=== PATIENT | male | born 1995 | race Caucasian/White ===

== ENCOUNTER 2016-08-10 04:11 | Emergency (ER) | payer BC ==
[~2016-08-10] VITALS: Ht 177.8 cm; Wt 64.6 kg
[~2016-08-10 04:11] MED LIST: OXYC-57 PO
[2016-08-10 04:14] VITALS: TEMP 36.9; Ht 177.8 cm; Wt 64.6 kg
[2016-08-10] MEDS ORDERED: KETOROLAC TROMETHAMINE 30 MG/ML VIAL IV STA (04:35)
[2016-08-10] MEDS ORDERED: AMPICILLIN/SULBACTAM SOD INJ 3,000 MG in SODIUM CHLORIDE 0.9% 100ML 100 ML IV ONE (04:45)
[2016-08-10] MEDS ORDERED: DEXAMETHASONE SOD INJ 10 MG/ML VIAL IV ONE (04:45)
[2016-08-10] MEDS ORDERED: OPTIRAY 320 IV PRN (05:00)
[2016-08-10 05:08] LABS: BASO % 0.5 %; BASO ABS # 0.05 K/uL (0-0.2); COMPLETE YES; EOS % 6.4 %; HEMATOCRIT 40.5 % (42-52); IG% 0.2 %; LYMPH % 27.6 %; LYMPH ABS # 2.62 K/uL (1.2-3.4); MEAN CELL VOLUME 87.3 fL (80-100); MEAN CORPUSCULAR HEMOGLOBIN 29.3 pg (25-34); MEAN CORPUSCULAR HGB CONC 33.6 g/dl (32-36); MEAN PLATELET VOLUME 10.1 fL (7.4-10.4); MONO % 8.7 %; NEUT % 56.6 %; PLATELET COUNT 265 K/uL (130-400); RED BLOOD COUNT 4.64 M/uL (4.7-6.1); WHITE BLOOD COUNT 9.49 K/uL (4.8-10.8)
[2016-08-10 05:15] LABS: ISTAT CREATININE 0.9 mg/dl (0.6-1.3); ISTAT HEMOGLOBIN 13.6 g/dl (14.0-18.0); ISTAT IONIZED CALCIUM 1.19 mmol/l (1.12-1.32)
[2016-08-10 05:24] LABS: BUN/CREATININE RATIO 14.6 (10-20); CALCIUM 8.9 mg/dl (8.5-10.1); CREATININE 0.92 mg/dl (0.60-1.40); POTASSIUM 3.5 mmol/L (3.5-5.1)
[2016-08-10] MEDS ORDERED: XYLOCAINE 1%/SOD BICARB 20 ML VIAL INFIL ONE (06:00)
[2016-08-10] MEDS ORDERED: CLINDAMYCIN 150MG HOME PACK PO ONE (06:15)
[2016-08-10] MEDS ORDERED: ONDANSETRON HOME PACK 4MG OD TAB PO ONE (06:15)
[2016-08-10] MEDS ORDERED: OXYCODONE IR HOME PACK PO ONE (06:15)
--- NOTE | 2016-08-10 06:25 | EMERGENCY ROOM VISIT NOTE ---
History First contact with patient: 04:20 Chief Complaint: OTHER COMPLAINT Stated Complaint: ABSCESS History of Present Illness The patient is a 21 year old male who presents to the Emergency Room with complaints of left lower jaw pain and swelling the past few weeks that has gotten much worse for the past week. Patient states his appointment on the with an oral surgeon. He is unsure of the name. Patient was seen here last month and had a scan and was given antibiotics. He got slightly better but now has gotten worse. Patient denies chest pain, dyspnea, neck stiffness, sore throat, tongue swelling, cough, congestion, fever, chills. He is tolerating by mouth fluids and food. No IV drug abuse. Review of Systems See HPI for pertinent positives & negatives. A total of 10 systems reviewed and were otherwise negative. Past Medical/Surgical History None Social History Smoking Status: Never Smoker Smokeless Tobacco Use: No Drug Use: none Marital Status: single Housing Status: lives with roommate Occupation Status: [employer] Current/Historical Medications Scheduled Clindamycin Hcl (Cleocin), 300 MG PO QID Allergies Coded Allergies: No Known Allergies (Unverified , 07/22/16) Physical Exam Vital Signs Date Time Temp Pulse Resp B/P Pulse Ox O2 Delivery O2 Flow Rate FiO2 08/10/16 05:22 79 16 125/75 99 Room Air 08/10/16 04:14 36.9 73 20 122/78 98 Room Air Physical Exam VITALS: Vitals are noted on the nurse's note and reviewed by myself. Vital signs stable. GENERAL: Pleasant male, in no acute distress, nondiaphoretic, well-developed well-nourished. SKIN: The skin was without rashes, erythema, edema, or bruising. There is no tenting of the skin. Capillary reflex less than 2 seconds. HEAD: Normocephalic atraumatic. Face: Left lower jaw line erythematous and edematous and hard concerning for cellulitis and possible developing abscess EARS: External auditory canals clear, tympanic membranes pearly yan without erythema or effusion bilaterally. EYES: Pupils equal round and reactive to light and accommodation. Conjunctivae without injection, sclerae without icterus. Extraocular movements intact. NOSE: Patent, turbinates without inflammation or discharge. No sinus tenderness. MOUTH: Mucous membranes moist. . Pharynx without erythema or exudate. Uvula midline. Airway patent. Tongue does not deviate. Dental exam: No palpable abscess overall dental hygiene fair NECK: Supple without nuchal rigidity. Left-sided anterior cervical lymphadenopathy. No thyromegaly. Cervical spine is nontender. No JVD. No meningeal signs HEART: Regular rate and rhythm without murmurs gallops or rubs. LUNGS: Clear to auscultation bilaterally without wheezes, rales or rhonchi. No dullness to percussion. No retractions or accessory muscle use. ABDOMEN: Positive bowel sounds x 4. Normal tympanic percussion. Soft, nontender, without masses or organomegaly. Calvert sign negative. No guarding or rebound tenderness. MUSCULOSKELETAL: No muscle atrophy, erythema, or edema noted. NEURO: Patient was alert and oriented to person place and time. Normal sensation to light and sharp touch. No focal neurological deficits. Medical Decision & Procedures Laboratory Results 08/10/16 04:50 Red Blood Count 4.64, Mean Corpuscular Volume 87.3, Mean Corpuscular Hemoglobin 29.3, Mean Corpuscular Hemoglobin Concent 33.6, Mean Platelet Volume 10.1, Neutrophils (%) (Auto) 56.6, Lymphocytes (%) (Auto) 27.6, Monocytes (%) (Auto) 8.7, Eosinophils (%) (Auto) 6.4, Basophils (%) (Auto) 0.5, Neutrophils # (Auto) 5.36, Lymphocytes # (Auto) 2.62, Monocytes # (Auto) 0.83, Eosinophils # (Auto) 0.61, Basophils # (Auto) 0.05 08/10/16 04:50 Test 08/10/16 04:50 08/10/16 04:59 White Blood Count 9.49 K/uL (4.8-10.8) Red Blood Count 4.64 M/uL (4.7-6.1) Hemoglobin 13.6 g/dL (14.0-18.0) Hematocrit 40.5 % (42-52) Mean Corpuscular Volume 87.3 fL (80-100) Mean Corpuscular Hemoglobin 29.3 pg (25-34) Mean Corpuscular Hemoglobin Concent 33.6 g/dl (32-36) Platelet Count 265 K/uL (130-400) Mean Platelet Volume 10.1 fL (7.4-10.4) Neutrophils (%) (Auto) 56.6 % Lymphocytes (%) (Auto) 27.6 % Monocytes (%) (Auto) 8.7 % Eosinophils (%) (Auto) 6.4 % Basophils (%) (Auto) 0.5 % Neutrophils # (Auto) 5.36 K/uL (1.4-6.5) Lymphocytes # (Auto) 2.62 K/uL (1.2-3.4) Monocytes # (Auto) 0.83 K/uL (0.11-0.59) Eosinophils # (Auto) 0.61 K/uL (0-0.5) Basophils # (Auto) 0.05 K/uL (0-0.2) RDW Standard Deviation 41.9 fL (36.4-46.3) RDW Coefficient of Variation 13.2 % (11.5-14.5) Immature Granulocyte % (Auto) 0.2 % Immature Granulocyte # (Auto) 0.02 K/uL (0.00-0.02) Est Creatinine Clear Calc Drug Dose 115.1 ml/min Estimated GFR () 136.4 Estimated GFR (Non- 117.6 BUN/Creatinine Ratio 14.6 (10-20) Calcium Level 8.9 mg/dl (8.5-10.1) Amylase Level 65 U/L (25-115) Bedside Hemoglobin 13.6 g/dl (14.0-18.0) Bedside Hematocrit 40 % (42-52) Bedside Sodium 142 mEq/L (135-144) Bedside Potassium 3.4 mEq/L (3.3-5.0) Bedside Chloride 101 mEq/L (101-112) Bedside Total CO2 28 mEq/l (24-31) Anion Gap 17.0 mmol/L (16-25) Bedside Blood Urea Nitrogen 13 mg/dl (7-18) Bedside Creatinine 0.9 mg/dl (0.6-1.3) Bedside Glucose (other) 85 mg/dl (70-99) Bedside Ionized Calcium (Yolette) 1.19 mmol/l (1.12-1.32) Medications Administered Medications (Trade) Dose Ordered Sig/Marisa Route Start Time Stop Time Status Last Admin Dose Admin Ampicillin Sodium/ Sulbactam Sodium/ Sodium Chloride (Unasyn Inj/Nss 100ml) 108 ml @ 200 mls/hr ONE ONCE IV 08/10/16 04:45 08/10/16 05:17 DC 08/10/16 05:19 200 MLS/HR Ketorolac Tromethamine (Toradol Inj) 30 mg NOW STAT IV 08/10/16 04:35 08/10/16 04:37 DC 08/10/16 04:53 30 MG Dexamethasone Sodium Phosphate (Decadron Inj) 10 mg NOW ONCE IV 08/10/16 04:45 08/10/16 04:46 DC 08/10/16 04:53 10 MG Procedure Incision & Drainage Indication: Abscess. Location: left lower jaw line Verbal consent was obtained after the risks and benefits were explained, including but not limited to bleeding, scarring, infection, pain, and bone/joint /nerve damage. At this time, the risks of the procedure are less than the risks of NOT performing the procedure. A time out was taken and the correct patient and site identified. The skin was prepped with betadine and a sterile field set. The wound was anesthetized with 4 ml of 1% lidocaine without epinephrine. The abscess cavity was entered with a number 11 blade and purulent material expressed. Copious irrigation was performed using NSS. The wound was explored for foreign bodies and none found. Debridement was not performed. Packing placed and a sterile dressing applied. Detailed wound care instructions and signs and symptoms of worsening infection reviewed with the patient. No complications and the patient tolerated the procedure well. ED Course Prior records reviewed and summarized as above. Triage Nursing notes reviewed. The patient's history was concerning for swelling and redness of the skin. Differential diagnosis: Etiologies such as cellulitis, abscess, MRSA infection, dental infection, Gentry 's angina, parotitis, dermatitis, drug eruption, as well as others were entertained.. Physical examination: As above ER treatment provided: Unasyn, Toradol On reassessment the patient felt better. Diagnostics interpreted by me: The labs revealed no worrisome leukocytosis or electrolyte abnormality. Wound culture pending Imaging studies: CT NECK: Comparison: CT dated 07/22/2016. Ill-defined fluid and subtle incomplete rim enhancement subjacent to marker along the left lower face (Series 2, Images 58 through 66). Area of subtle rim enhancement measures approximately 2 cm AP x 0.6 cm transverse. Findings are suggestive of infection (likely odontogenic source) with phlegmon/early abscess in region of marker. Periapical lucency surrounding root of left lower molar tooth, stable. Radiologist: Arin Garcia MD I spoke to our case investigator Mar, and will book the patient appointment today with oral surgery when office hours open at 8 AM. This appears to be patient's cellulitis with abscess. I & D as above. Patient was started on antibiotics. He was placed on clindamycin for better MRSA coverage. He was just on penicillin and got an increased infection. He was advised follow-up oral surgery for his dental problem and health services for the facial infection. He was advised to take medications as directed. He was advised to return to the ER immediately for fevers, neck stiffness, difficulty swallowing, worsening signs or symptoms or as needed. Patient had no signs of Gentry angina on exam. No meningeal signs. He was well-appearing. By the evaluation outlined above emergent etiologies such as Gentry angina, as well as others were deemed relatively unlikely. The pt informed about the findings as listed above. All questions were answered and pleased with the treatment. Return instructions were outlined and the patient was discharged in stable condition. Outpatient prescription management: cleocin Referral: The patient was referred to oral surgery and [facility] for follow-up in 2 to 3 days for a recheck of the current condition. case reviewed with my Attending Medical Decision As above Impression Primary Impression: Cellulitis and abscess of face Additional Impression: Dental infection Departure Information Dispostion Home / Self-Care Condition GOOD Prescriptions Clindamycin Hcl (CLEOCIN) 300 Mg Cap 300 MG PO QID for 10 Days, #40 CAP Prov: Lauren Arenas .BRIANA 08/10/16 Referrals [facility] (PCP) Patient Instructions A Signature Page, My [facility] Additional Instructions Clindamycin 300mg: Take one pill 4 times daily for 10 days for your infection. Take with food, but avoid dairy. Avoid prolonged sun exposure since this medication makes you temporarily more susceptible to sunburns. All antibiotics can cause diarrhea. If this occurs and you feel worse or it does not resolve in 1-2 days follow up with your doctor or return to the Emergency Department as this could be signs of serious underlying problems. Any medication can cause an allergic reaction, stop the pills immediately and return to the ER for rash, hives, breathing difficulties, or swelling. Oxycodone (OxyIR) 5mg: Take 1-2 pills every four hours for breakthrough pain. Avoid alcohol, operating machinery or dangerous equipment, working on ladders or roofs, DRIVING, or situations where being under the influence may be dangerous. It is recommended to use an [id number] stool softener such as Colace, 100mg twice daily while taking this medication to avoid constipation. Ibuprofen(Motrin, Advil) may be used for fever or pain. Use 600mg every six hours as needed. Take with food. Avoid using more than 2400mg in a 24 hour period. Do not use 2400mg per day for more than three consecutive days without physician direction. Prolonged inappropriate use can lead to stomach upset or ulcers. This medication can be taken if you need to drive, work, or perform activities which may be dangerous when taking narcotic pain medication. (AND/OR) Acetaminophen(Tylenol) may be used for fever or pain. Use 1000mg every six hours as needed. Avoid using more than 3000mg in a 24 hour period. This medication can be taken if you need to drive, work, or perform activities which may be dangerous when taking narcotic pain medication. [place] teeth twice a day, floss daily and do warm saltwater gargles 3 times a day. Follow-up with oral surgery in 2-3 days. Our case management will contact oral surgery to help book your appointment. If do not hear anything by the end of business today then call back to the ER at [phone]. Follow-up health services in 2-3 days for wound repacking and reevaluation of your facial abscess. Change outer dressing daily. Leave inner packing inside. Return to ER sooner for facial swelling, fever, redness, worsening signs or symptoms or as needed. Problem Qualifiers
[2016-08-10] MEDS ORDERED: CLIN300C2 PO (06:32)
[2016-08-10 07:00] VITALS: BP 108/65; PULSE 73; O2SAT 97
--- NOTE | 2016-08-10 07:59 | DIAGNOSTIC IMAGING REPORT ---
CT SCAN OF THE NECK WITH IV CONTRAST CLINICAL HISTORY: Left-sided facial infection. COMPARISON STUDY: Facial bone CT dated 07/22/2016. TECHNIQUE: Following the IV administration of 94 cc of Optiray 320, CT scan of the soft tissues of the neck was performed from the skull base to the upper chest. Images are reviewed in the axial, sagittal, and coronal planes. IV contrast was administered without complication. CT DOSE: 502.53 mGy.cm FINDINGS: Soft tissues: There is dermal thickening and soft tissue induration identified in the left facial region deep to the cutaneous marker at the level of the mandible. There is phlegmonous change in the subcutaneous fat with a small multiloculated/complex fluid collection identified measuring approximately 2 x 2 x 1 cm. The appearance is concerning for developing abscess. Dentition: There is a large periapical lucency identified involving the most posterior left mandibular molar with associated cortical breakthrough. This is best seen on axial image #226. No additional periapical lucencies are identified. Pharynx: The nasopharynx, oropharynx, and laryngeal pharynx are normal in appearance. The pharyngeal airway is widely patent. There is no evidence of mass lesion. The vocal cords are symmetric. The parapharyngeal fat is well maintained. The prevertebral/retropharyngeal soft tissues are within normal limits. Lymphadenopathy: Prominent left cervical chain lymph nodes are likely on a reactive basis. These are not pathologically enlarged by size criteria. Thyroid: Normal in size and attenuation. Salivary glands: The parotid and submandibular glands are within normal limits. Brain parenchyma: The visualized brain parenchyma at the skull base is normal in appearance. Vascular structures: The carotid arteries and jugular veins are widely patent bilaterally. Skeletal structures: Imaged portions of the calvarium at the skull base are within normal limits. The cervical spine appears intact. Sinuses and mastoids: There is trace nodular mucosal thickening within the maxillary antra. The remaining paranasal sinuses are clear. The mastoid air cells are well pneumatized. Orbits: The bony orbits are intact. Orbital contents are normal in appearance. Lung apices: Visualized apical lung parenchyma is clear. IMPRESSION: 1. Findings are consistent with left facial cellulitis. Phlegmonous change with a developing abscess is suspected deep to the cutaneous marker as detailed above. These findings are similar to the 07/22/2016 CT scan. 2. There is a large periapical lucency involving the most posterior left mandibular molar with associated cortical breakthrough. The facial cellulitis may be related to underlying periodontal disease. Dental follow-up is recommended. 3. Prominent left cervical chain lymph nodes are likely on a reactive basis. Electronically signed by: Alexsander Álvarez M.D. 08/10/2016 7:57 AM Dictated Date/Time: 08/10/2016 7:46 AM
== END 2016-08-10 07:00 | disposition home or self-care (01) ==
LOC: C.EDB 04:12
DX: L03.211 Cellulitis of face (principal); K04.7 Periapical abscess without sinus